=== PATIENT | male | born 1975 | race Caucasian/White ===

== ENCOUNTER → 2022-05-15 12:24 | Outpatient (BNVA) | payer OTHER, SELFPAY | PROVIDERS: PCP Nurse Practitioner; Visit Provider Internal Medicine Cardiovascular Disease | DX: R07.9 Chest pain, unspecified (principal); G47.30 Sleep apnea, unspecified; G43.909 Migraine, unspecified, not intractable, without status migrainosus; Z87.891 Personal history of nicotine dependence | CPT/HCPCS: 99203 ==

== ENCOUNTER 2023-11-03 03:10 | Emergency (ER) | payer OTHER, SELFPAY ==
[2023-11-03 03:15] VITALS: BP 164/93; PULSE 49; RESP 16; TEMP 37.1; O2SAT 99; BMI 30.8
--- NOTE | 2023-11-03 03:29 | CTR_ITS ---
PROCEDURE INFORMATION: Exam: CT Abdomen And Pelvis With Contrast Exam date and time: 11/03/2023 3:42 AM Age: 48 years old Clinical indication: Abdominal pain; Patient HX: Onset of epigastric pain this a. M. TECHNIQUE: Imaging protocol: Computed tomography of the abdomen and pelvis with contrast. Radiation optimization: All CT scans at this facility use at least one of these dose optimization techniques: automated exposure control; mA and/or kV adjustment per patient size (includes targeted exams where dose is matched to clinical indication); or iterative reconstruction. Contrast material: OMNI 350; Contrast volume: 100 ml; Contrast route: INTRAVENOUS (IV); COMPARISON: No relevant prior studies available. RADIATION DOSE METRICS: Total DLP (mGy-cm): 1082.73 FINDINGS: Lungs: Visualized lung bases are clear. Heart: Heart size normal Diaphragm: Possible small hiatal hernia. Mild distal esophageal wall thickening; DX for this appearance includes inflammatory/infectious/neoplastic etiologies. Liver: Mild hepatomegaly. No focal liver lesion seen. Gallbladder and bile ducts: Gallbladder is mildly distended. No CT findings to suggest cholecystitis. Pancreas: Normal. No ductal dilation. Spleen: Normal. No splenomegaly. Adrenal glands: Normal. No mass. Kidneys and ureters: Normal. No hydronephrosis. Stomach and bowel: Prominent rectosigmoid wall thickening; DX for this appearance includes inflammatory/infectious/neoplastic etiologies. Copious stool fills the right colon. Appendix: Appendix is not definitely visualized. No secondary signs to suggest appendicitis. No pericecal inflammation or free fluid. Intraperitoneal space: See Lymph nodes finding. Vasculature: Unremarkable. No abdominal aortic aneurysm. Lymph nodes: Multiple shotty mediastinal nodes are seen within the left abdomen, largest measuring up to 8 mm short axis as seen on series 3/36 and series 3/. Subtle surrounding deric mesentery sign. Constellation of findings suggests mesenteric panniculitis. Other etiologies can not be excluded. Shotty periaortic nodes. Subcentimeter mesenteric nodes are also seen throughout the right abdomen. Urinary bladder: Unremarkable as visualized. Reproductive: Unremarkable as visualized. Bones/joints: No suspicious osseous findings. Soft tissues: Unremarkable. CT/CT abdomen pelvis w con* [id number] IMPRESSION: 1. Constellation of findings at the left abdomen compatible with mesenteric panniculitis. 2. Rectosigmoid wall thickening as discussed . 3. Appendix is not definitely visualized. No secondary signs to suggest appendicitis. 4. Other chronic/incidental findings as above.
--- NOTE | 2023-11-03 03:29 | ECG_ITS ---
[facility] Test Date: 2023-11-03 Pat Name: Jeffy Fernandez Department: Room: Gender: Male Purchasing Coordinator: : 1975 Requested By: Theodore Fisher Order Number: [id number] Myriam MD: Prudencio De Jesus M.D. Measurements Intervals [place] Rate: 51 P: 35 NM: 138 QRS: 17 QRSD: 121 T: 37 QT: 453 QTc: 418 Interpretive Statements SINUS BRADYCARDIA POSSIBLE LATERAL MYOCARDIAL INFARCTION , OF INDETERMINATE AGE [30 ms Q WAVE IN I/aVL/V5/V6] No previous ECG available for comparison Electronically Signed On 11-03-2023 8:21:56 STATION WORKER by Prudencio De Jesus M.D. [email or web address]
[2023-11-03 03:31] LABS: Basophils # 0.1 10^3/uL (0.0-0.1); Basophils % 0.7 %; Eosinophils # 0.2 10^3/uL (0.0-0.8); Hematocrit 38.5 % (37-53); Lymphocytes # 1.8 10^3/uL (0.8-4.8); Lymphocytes % 22.4 %; Mean Corpuscular HGB Conc 35.3 g/dL (30-55); Mean Corpuscular Hemoglobin 30.7 pg (27-33); Mean Corpuscular Volume 86.9 fl (82-101); Monocytes # 0.5 10^3/uL (0.2-0.9); Neutrophils # 5.55 10^3/uL (1.8-7.7); Neutrophils % 68.4 %; Nucleated Red Blood Cells % 0 %; Platelet Count 265 10^3/cmm (157-399); Red Blood Count 4.43 10^6/uL (3.85-5.65); Red Cell Distribution Width 12.3 % (12.1-15.1); White Blood Count 8.12 10^3/uL (3.29-11.43)
[2023-11-03] MEDS: lidocaine 2% viscous 15 ML, aluminum-mag hydrox-simethicon 30 ML, sucralfate oral liq 1 GM PO (03:40)
[2023-11-03] MEDS: ondansetron 2 mg/ML SDV 2 mL 4 MG IVP (03:40)
[2023-11-03] MEDS: morphine 4 mg/mL SDV 1 mL IVP (03:40)
[2023-11-03] MEDS: iohexol 350 mg/mL 500 mL Btl (per mL) IV (03:44)
[2023-11-03 03:48] LABS: Alanine Aminotransferase 37 U/L (0-41); Albumin Level 4.4 g/dL (3.5-5.2); Alkaline Phosphatase 66 U/L (40-130); Anion Gap 16.2 (5-19); Aspartate Amino Transferase 20 U/L (0-40); Blood Urea Nitrogen 23 mg/dL (6-20); Calcium 9.1 mg/dL (8.5-10.5); Carbon Dioxide 25 mmol/L (22-29); Chloride 97 mmol/L (98-107); Globulin 2.9 g/dL (1.3-4.6); Glomerular Filtration Rate 79.8 mL/min (90-130); Glucose 126 mg/dL (65-115); Lipase 45 U/L (13-60); Osmolality Calculated 283 mOsm/kg (285-295); Potassium 4.2 mmol/L (3.5-5.1); Sodium 134 mmol/L (136-145); Total Bilirubin 0.6 mg/dL (0.15-1.2); Total Protein 7.3 g/dL (6.6-8.7)
[2023-11-03 04:02] LABS: Troponin(5th) Baseline < 6 ng/L (0-15)
[2023-11-03] MEDS: ketorolac 30 mg/mL INJ IVP (04:27)
--- NOTE | 2023-11-03 04:55 | ED_ITS ---
HPI - Abdominal Pain 2 General: Chief Complaint: Abdominal Pain Stated Complaint: abd pain upper into back Time Seen by Provider: 11/03/23 03:14 History of Present Illness: 48-year-old male with a history of abdom inal pain starting last night. He has been nauseated. No vomiting. No diarrhea. No fever. He has not had pain like this before. No urinary symptoms. No blood in the stool. No history of abdominal surgery. Associated Symptoms: Reports nausea; Denies chills, diarrhea, fever(s), hematochezia and vomiting Review of Systems 2 Const: Denies: fever(s), chills or body aches Eyes: Denies: change in vision Card: Denies: chest pain or palpitations Resp: Denies: dyspnea, productive cough, non-productive cough or wheezing GI: Reports: abdominal pain and nausea; Denies: vomiting, diarrhea or hematochezia Skin/Breast: Denies: rash Neuro: Denies: headache(s), weakness in extremities, dizziness or confusion PFSH ED 2 PFSH: Medical History Cervicalgia Migraine History of traumatic brain injury PTSD (post-traumatic stress disorder) Sleep apnea Surgical History S/P carpal tunnel release S/P shoulder surgery S/P vasectomy S/P knee surgery Family History Grandfather Myocardial infarct Stroke Other Diabetes Hypertension Social History Smoking and tobacco/nicotine status: former use of tobacco/nicotine Physical Exam 2 Const: COMMON NORMALS: no acute distress GENERAL APPEARANCE: cooperative; not ill appearing and not frail appearing HENMT: COMMON NORMALS: normocephalic, atraumatic and Normal external nose present HEAD & SCALP: normocephalic and atraumatic FACE & SINUS: normal facial exam and face symmetric NOSE: Normal external nose present Eye: COMMON NORMALS: Equal, round and reactive pupils present and EOMs intact bilaterally PUPIL: Yes Equal, round and reactive pupils present Neck/C-Spine: GENERAL: Yes trachea midline Chest: CHEST: Yes Symmetrical chest wall rise Resp: COMMON NORMALS: normal respiratory effort, No retractions, No use of accessory muscles and clear to auscultation bilaterally AUSCULTATION: clear to auscultation bilaterally Cardio: COMMON NORMALS: regular rate and regular rhythm RATE: regular rate RHYTHM: regular rhythm GI: COMMON NORMALS: Normal to inspection, nondistended, normoactive bowel sounds present and Soft to palpation PALPATION: Yes Soft to palpation and Yes Tenderness to palpation present (GI) (Epigastric) Details: RUQ Extremity: COMMON NORMALS: no pedal edema Neuro: TJ COMA SCALE: document GCS findings Jt coma scale eye opening: Spontaneous [place] coma scale verbal response: Orientated [place] coma scale motor response: Obey commands Jt coma scale total score: 15 S ENSORY EXAM: Yes extremities (intact) Psych: COMMON NORMALS: speech normal SPEECH: Yes normal speech Skin: COMMON NORMALS: no rashes or lesions noted GENERAL SKIN EXAM: no rashes or lesions noted Course 2 Vital Signs: Vital signs: Vital Signs Temperature 98.8 F 11/03/23 03:15 Pulse Rate 74 11/03/23 06:46 Respiratory Rate 18 11/03/23 06:46 Blood Pressure 164/90 11/03/23 06:46 Pulse Oximetry 94 11/03/23 06:46 Oxygen Delivery Me thod Room Air 11/03/23 03:15 MDM - Abdominal Pain Medical Decision Making Vitals are stable. CBC is normal. CMP shows a BUN of 23 with a creatinine of 1. Liver enzymes are normal. Bilirubin is 0.6. Lipase is 45. CRP is 3. CT of the abdomen pelvis is pending. CT reveals findings consistent with mesenteric panniculitis. There are some rectosigmoid colon wall thickening. There is significant amount of stool present. Findings were gone over with the patient. He is placed on steroids. Pain medication. 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 To return for any worsening symptoms. He understands. Lab Data 11/03/23 03:17 11/03/23 03:17 Labs/Radiology: Radiology Impressions Abdomen/Pelvis CT 11/03/23 03:29 IMPRESSION: 1. Constellation of findings at the left abdomen compatible with mesenteric panniculitis. 2. Rectosigmoid wall thickening as discussed . 3. Appendix is not definitely visualized. No secondary signs to suggest appendicitis. 4. Other chronic/incidental findings as above. Laboratory Results WBC 8.12 10^3/uL (3.29-11.43) 11/03/23 03:17 RBC 4.43 10^6/uL (3.85-5.65) 11/03/23 03:17 Hgb 13.60 g/dL (11.27-16.99) 11/03/23 03:17 Hct 38.5 % (37-53) 11/03/23 03:17 MCV 86.9 fl (82-101) 11/03/23 03:17 MCH 30.7 pg (27-33) 11/03/23 03:17 MCHC 35.3 g/dL (30-55) 11/03/23 03:17 RDW 12.3 % (12.1-15.1) 11/03/23 03:17 Plt Count 265 10^3/cmm (157-399) 11/03/23 03:17 MPV 11.0 fL (7.4-10.4) H 11/03/23 03:17 Neut % (Auto) 68.4 % 11/03/23 03:17 Lymph % (Auto) 22.4 % 11/03/23 03:17 [place] % (Auto) 6.0 % 11/03/23 03:17 Eos % (Auto) 2.0 % 11/03/23 03:17 Baso % (Auto) 0.7 % 11/03/23 03:17 Neut # (Auto) 5.55 10^3/uL (1.8-7.7) 11/03/23 03:17 Lymph # (Auto) 1.8 10^3/uL (0.8-4.8) 11/03/23 03:17 [place] # (Auto) 0.5 10^3/uL (0.2-0.9) 11/03/23 03:17 Eos # (Auto) 0.2 10^3/uL (0.0-0.8) 11/03/23 03:17 Baso # (Auto) 0.1 10^3/uL (0.0-0.1) 11/03/23 03:17 Nucleated RBC % (auto) 0 % 11/03/23 03:17 Nucleated RBCs # 0.0 /100WBC 11/03/23 03:17 Sodium 134 mmol/L (136-145) L 11/03/23 03:17 Potassium 4.2 mmol/L (3.5-5.1) 11/03/23 03:17 Chloride 97 mmol/L (98-107) L 11/03/23 03:17 Carbon Dioxide 25 mmol/L (22-29) 11/03/23 03:17 Anion Gap 16.2 (5-19) 11/03/23 03:17 BUN 23 mg/dL (6-20) H 11/03/23 03:17 Creatinine 1.0 mg/dL (0.7-1.2) 11/03/23 03:17 GFR Calculation 79.8 mL/min (90-130) L 11/03/23 03:17 Glucose 126 mg/dL (65-115) H 11/03/23 03:17 Calculated Osmolality 283 mOsm/kg (285-295) L 11/03/23 03:17 Calcium 9.1 mg/dL (8.5-10.5) 11/03/23 03:17 Total Bilirubin 0.6 mg/dL (0.15-1.2) 11/03/23 03:17 AST 20 U/L (0-40) 11/03/23 03:17 ALT 37 U/L (0-41) 11/03/23 03:17 Alkaline Phosphatase 66 U/L (40-130) 11/03/23 03:17 Troponin T Baseline < 6 ng/L (0-15) 11/03/23 03:17 Troponin T 120 Minute 6.00 ng/L (0-15) 11/03/23 05:11 Delta Troponin T 0.84119 ABS# (0-10) 11/03/23 05:11 C-Reactive Protein 3.0 mg/L (0.0-4.9) 11/03/23 03:17 Total Protein 7.3 g/dL (6.6-8.7) 11/03/23 03:17 Albumin 4.4 g/dL (3.5-5.2) 11/03/23 03:17 Globulin 2.9 g/dL (1.3-4.6) 11/03/23 03:17 Lipase 45 U/L (13-60) 11/03/23 03:17 All radiology interpretation(s) finalized by discharge Discharge Plan Discharge Patient Disposition: Home Clinical Impression: Mesenteric panniculitis Condition: Stable Prescriptions: New Percocet 7.5-325 mg tablet 1 tab PO Q6H PRN (Reason: pain) Qty: 10 0RF ondansetron 4 mg tablet,disintegrating 4 mg PO Q6H PRN (Reason: nausea and vomiting) Qty: 14 0RF prednisone 20 mg tablet 20 mg PO TID Qty: 15 0RF No Action meloxicam 15 mg tablet 15 mg PO DAILY tramadol 50 mg tablet 50 mg PO BID PRN sumatriptan succinate [Imitrex] 25 mg tablet 25 mg PO Q2H PRN Rx Instructions: do not exceed 8 doses per 24 hrs Discharge Orders: Discharge ED (Routine); Ordered 11/03/23 Ordered By: Theodore Bridges Referrals: Arin South FNP [Primary Care Provider] - 1-3 days Patient Instructions: Opioid Safety, Pain Management Activity Restrictions/Additional Instructions: You have a condition called mesenteric panniculitis. It is treated with steroids, and symptom management. Please see the attached information from the [facility]. Return for worsening pain despite treatment, vomiting liquids or medications, fever greater than 100, any other concerning symptoms. Medications as directed. See your doctor later this week. Coding Level of Care Code ED Manager Packaging for Young Resendez
[2023-11-03] MEDS: HYDROmorphone 1 mg/mL INJ 1 mL IVP (04:59)
[2023-11-03 05:32] LABS: Troponin 5 2HR Delta 0.00001 ABS# (0-10)
[2023-11-03] MEDS: methylPREDNISolone sod succ 125 mg/2 mL INJ IVP (06:09)
[2023-11-03] MEDS: HYDROmorphone 1 mg/mL INJ 1 mL 0.5 MG IVP (06:09)
--- NOTE | 2023-11-03 06:44 | PC.NURSE ---
Pt. discharged home with e-scripts that went to [facility] pharmacy. Pt. was given printed scripts. Day shift nurse reported to call and cancel scripts at [facility].
[2023-11-03 06:46] VITALS: BP 164/90; PULSE 74; RESP 18; O2SAT 94
== END 2023-11-03 06:48 | disposition home or self-care (01) ==
PROVIDERS: Emergency Provider Emergency Medicine; PCP Nurse Practitioner
DX: K65.4 Sclerosing mesenteritis (principal); Z87.891 Personal history of nicotine dependence
CPT/HCPCS: 36415; 74177; 80053; 83690; 84484; 85025; 86140; 93005; 96374; 96375; 96376; 99285; J1170; J1885; J2270; J2405; J2930; Q9967

== ENCOUNTER 2023-12-02 09:14 | Outpatient (CLI) | payer OTHER, SELFPAY ==
--- NOTE | 2023-12-02 09:24 | US_ITS ---
WS: [id number] ULTRASOUND THYROID TECHNIQUE: Ultrasound of the thyroid. CLINICAL INFORMATION: HYPOTHYROIDISM/ELEVATED PEPPER COMPARISON: None. FINDINGS: Thyroid: Heterogeneous enlarged thyroid. Coarse heterogeneous thyroid echotexture with small micronod ules and markedly increased vascularity. This can be seen with Yaokv's thyroiditis. Recommend cor relation with thyroid function studies. Right thyroid lobe: 4.5 cm x 1.4 cm x 1.5 cm Left thyroid lobe: 4.3 cm x 1.6 cm x 1.6 cm. Isthmus: 0.5 mm. Cervical lymphadenopathy: None. IMPRESSION: 1. Heterogeneous thyroid echotexture with mild thyroid enlargement. Markedly increased thyroid vascu larity. Findings can be seen with Yakov's thyroiditis. Recommend correlation with thyroid functio n studies. 2. No dominant nodules
== END 2023-12-02 09:15 | disposition home or self-care (01) ==
LOC: RAD 09:14
PROVIDERS: PCP Nurse Practitioner; Visit Provider Nurse Practitioner
DX: E03.9 Hypothyroidism, unspecified (principal); E04.9 Nontoxic goiter, unspecified
CPT/HCPCS: 76536

== ENCOUNTER → 2024-02-03 07:58 | Outpatient (BNVA) | payer OTHER, SELFPAY | PROVIDERS: PCP Nurse Practitioner; Referring Provider Nurse Practitioner; Visit Provider Internal Medicine | DX: E06.3 Autoimmune thyroiditis (principal); E01.0 Iodine-deficiency related diffuse (endemic) goiter | CPT/HCPCS: 99204 ==

== ENCOUNTER 2024-04-12 03:16 | Emergency (ER) | payer OTHER, SELFPAY ==
[2024-04-12 03:21] VITALS: BP 171/106; PULSE 53; RESP 18; TEMP 36.4; O2SAT 99; BMI 34.0
--- NOTE | 2024-04-12 03:32 | ED_ITS ---
HPI - Abdominal Pain 2 General: Chief Complaint: Abdominal Pain Stated Complaint: severe ABD pain Time Seen by Provider: 04/12/24 03:20 History of Present Illness: Patient presents to the ER with complaints of bandlike pain and upper abdominal pain that started about 9 PM tonight he rates it severe in nature. Patient states it feels exactly like the last time he was in when he got diagnosed with mesenteric panniculitis after he took the medicine he has been good up until now. Patient denies any vomiting diarrhea only some mild nausea. Patient has not taken any medicine for at this time other than 1 standard Tylenol approximately 2 hours ago. Patient denies any history of abdominal surgeries. Review of Systems 2 General: Reports: 10 or more systems reviewed and unremarkable except in HPI and below PFSH ED 2 PFSH: Medical History Cervicalgia Migraine History of traumatic brain injury PTSD (post-traumatic stress disorder) Sleep apnea Surgical History S/P carpal tunnel release S/P shoulder surgery S/P vasectomy S/P knee surgery Family History Grandfather Myocardial infarct Stroke Other Diabetes Hypertension Social History Smoking and tobacco/nicotine status: former use of tobacco/nicotine Physical Exam 2 Const: COMMON NORMALS: no acute distress, average body habitus, patient oriented x3, no limitations, healthy appearing, alert and well nourished HENMT: COMMON NORMALS: normocephalic, atraumatic, hearing grossly normal bilaterally, external ears normal, Normal external nose present and moist oral mucous membranes HEAD & SCALP: normocephalic and atraumatic NOSE: Normal external nose present EXTERNAL EAR: Yes external ears normal Neck/C-Spine: COMMON NORMALS: no JVD Chest: COMMONS NORMALS: normal inspection of the chest and normal palpation of entire chest wall Resp: COMMON NORMALS: normal respiratory effort, No retractions, No use of accessory muscles and clear to auscultation bilaterally AUSCULTATION: clear to auscultation bilaterally Cardio: COMMON NORMALS: no JVD, regular rate, regular rhythm, S1 normal heart sound present, S2 normal heart sound present, No gallops present (Cardio), No clicks present (Cardio), No murmurs present (Cardio) and No rub (Cardio) R ATE: regular rate RHYTHM: regular rhythm HEART SOUNDS: S1 normal heart sound present and S2 normal heart sound present GI: COMMON NORMALS: Normal to inspection, nondistended, normoactive bowel sounds present, Soft to palpation, No hepatosplenomegaly present and no masses; negative for non-tender (Tender with palpation across upper abdomen,) P ALPATION: Yes Soft to palpation and Yes No hepatosplenomegaly present Neuro: COMMON NORMALS: patient oriented x3 SENSORIUM/ORIENTATION: Yes alert Course 2 Vital Signs: Vital signs: Vital Signs Temperature 97.6 F 04/12/24 03:21 Pulse Rate 47 L 04/12/24 03:34 Respiratory Rate 14 04/12/24 03:51 Blood Pressure 171/106 04/12/24 03:21 Pulse Oximetry 95 04/12/24 03:51 Oxygen Delivery Me thod Room Air 04/12/24 03:34 MDM - Abdominal Pain Medical Decision Making Patient came in for physical evaluation, head physical exam, CBC CMP lipase CRP performed all which was essentially benign. Patient states he feels like exactly the same as when he had mesenteric panniculitis. Patient be discharged on the same medicines. Patient to follow-up with his PCP. Differential Diagnosis Likely abdominal pain Medical Records I reviewed the patient's medical records. Lab Data I reviewed the patient's lab results. 04/12/24 03:32 04/12/24 03:32 Labs/Radiology: Laboratory Results WBC 6.46 10^3/uL (3.29-11.43) 04/12/24 03:32 RBC 4.60 10^6/uL (3.85-5.65) 04/12/24 03:32 Hgb 14.10 g/dL (11.27-16.99) 04/12/24 03:32 Hct 40.2 % (37-53) 04/12/24 03:32 MCV 87.4 fl (82-101) 04/12/24 03:32 MCH 30.7 pg (27-33) 04/12/24 03:32 MCHC 35.1 g/dL (30-55) 04/12/24 03:32 RDW 12.4 % (12.1-15.1) 04/12/24 03:32 Plt Count 212 10^3/cmm (157-399) 04/12/24 03:32 MPV 10.6 fL (7.4-10.4) H 04/12/24 03:32 Neut % (Auto) 57.1 % 04/12/24 03:32 Lymph % (Auto) 28.6 % 04/12/24 03:32 [place] % (Auto) 8.4 % 04/12/24 03:32 Eos % (Auto) 4.8 % 04/12/24 03:32 Baso % (Auto) 0.8 % 04/12/24 03:32 Neut # (Auto) 3.69 10^3/uL (1.8-7.7) 04/12/24 03:32 Lymph # (Auto) 1.9 10^3/uL (0.8-4.8) 04/12/24 03:32 [place] # (Auto) 0.5 10^3/uL (0.2-0.9) 04/12/24 03:32 Eos # (Auto) 0.3 10^3/uL (0.0-0.8) 04/12/24 03:32 Baso # (Auto) 0.1 10^3/uL (0.0-0.1) 04/12/24 03:32 Nucleated RBC % (auto) 0 % 04/12/24 03:32 Nucleated RBCs # 0.0 /100WBC 04/12/24 03:32 Sodium 138 mmol/L (136-145) 04/12/24 03:32 Potassium 3.7 mmol/L (3.5-5.1) 04/12/24 03:32 Chloride 104 mmol/L (98-107) 04/12/24 03:32 Carbon Dioxide 22 mmol/L (22-29) 04/12/24 03:32 Anion Gap 15.7 (5-19) 04/12/24 03:32 BUN 19 mg/dL (6-20) 04/12/24 03:32 Creatinine 1.0 mg/dL (0.7-1.2) 04/12/24 03:32 GFR Calculation 79.4 mL/min (90-130) L 04/12/24 03:32 Glucose 127 mg/dL (65-115) H 04/12/24 03:32 Calculated Osmolality 290 mOsm/kg (285-295) 04/12/24 03:32 Calcium 8.9 mg/dL (8.5-10.5) 04/12/24 03:32 Total Bilirubin 0.5 mg/dL (0.15-1.2) 04/12/24 03:32 AST 23 U/L (0-40) 04/12/24 03:32 ALT 42 U/L (0-41) H 04/12/24 03:32 Alkaline Phosphatase 76 U/L (40-130) 04/12/24 03:32 C-Reactive Protein 3.0 mg/L (0.0-4.9) 04/12/24 03:32 Total Protein 6.8 g/dL (6.6-8.7) 04/12/24 03:32 Albumin 4.2 g/dL (3.5-5.2) 04/12/24 03:32 Globulin 2.6 g/dL (1.3-4.6) 04/12/24 03:32 Lipase 44 U/L (13-60) 04/12/24 03:32 All radiology interpretation(s) finalized by discharge Discharge Plan Discharge Patient Disposition: Home Clinical Impression: Mesenteric panniculitis Condition: Stable Prescriptions: New Percocet 7.5-325 mg tablet 1 tab PO Q6H PRN (Reason: pain) Qty: 10 0RF ondansetron 4 mg tablet,disintegrating 4 mg PO Q6H PRN (Reason: nausea and vomiting) Qty: 14 0RF prednisone 20 mg tablet 20 mg PO TID Qty: 14 0RF No Action lisinopril 10 mg tablet 10 mg PO DAILY meloxicam 15 mg tablet 15 mg PO DAILY tramadol 50 mg tablet 50 mg PO BID PRN sumatriptan succinate [Imitrex] 25 mg tablet 25 mg PO Q2H PRN Rx Instructions: do not exceed 8 doses per 24 hrs Percocet 7.5-325 mg tablet 1 tab PO Q6H PRN (Reason: pain) Qty: 10 0RF ondansetron 4 mg tablet,disintegrating 4 mg PO Q6H PRN (Reason: nausea and vomiting) Qty: 14 0RF prednisone 20 mg tablet 20 mg PO TID Qty: 15 0RF Discharge Orders: Discharge ED (Routine); Ordered 04/12/24 Ordered By: Sean Pool Referrals: Arin South FNP [Primary Care Provider] - 1 week Patient Instructions: Opioid Safety, Pain Management, Abdominal Pain - Adult Activity Restrictions/Additional Instructions: Thank you for choosing [facility] for your healthcare needs today. Please realize that you were seen in the emergency department and that we are providing you with an emergency medical screening exam and this may not be a complete and all exclusive of all testing and/or medical workup we may need to determine your element or severity of your illness. It is very important that you follow-up as instructed with your primary care provider or specialist for the additional evaluation and to discuss your medical treatment plan. You may return to the emergency department should you have concerns or if your condition changes or worsens in any way. Coding Level of Care Code ED Manager Corporate for Young Resendez
[2024-04-12 03:34] VITALS: PULSE 47; RESP 10; O2SAT 97
[2024-04-12 03:39] LABS: Basophils # 0.1 10^3/uL (0.0-0.1); Basophils % 0.8 %; Eosinophils # 0.3 10^3/uL (0.0-0.8); Eosinophils % 4.8 %; Hematocrit 40.2 % (37-53); Lymphocytes # 1.9 10^3/uL (0.8-4.8); Lymphocytes % 28.6 %; Mean Corpuscular HGB Conc 35.1 g/dL (30-55); Mean Corpuscular Hemoglobin 30.7 pg (27-33); Mean Corpuscular Volume 87.4 fl (82-101); Mean Platelet Volume 10.6 fL (7.4-10.4); Monocytes # 0.5 10^3/uL (0.2-0.9); Monocytes % 8.4 %; Neutrophils # 3.69 10^3/uL (1.8-7.7); Neutrophils % 57.1 %; Nucleated Red Blood Cells % 0 %; Platelet Count 212 10^3/cmm (157-399); Red Cell Distribution Width 12.4 % (12.1-15.1); White Blood Count 6.46 10^3/uL (3.29-11.43)
[2024-04-12] MEDS: ondansetron 2 mg/ML SDV 2 mL 4 MG IVP (03:49)
[2024-04-12 03:51] VITALS: RESP 14; O2SAT 95
[2024-04-12] MEDS: HYDROmorphone 1 mg/mL INJ 1 mL IVP (03:51)
[2024-04-12] MEDS: methylPREDNISolone sod succ 125 mg/2 mL INJ IVP (03:53)
[2024-04-12 04:00] LABS: Alanine Aminotransferase 42 U/L (0-41); Albumin Level 4.2 g/dL (3.5-5.2); Alkaline Phosphatase 76 U/L (40-130); Anion Gap 15.7 (5-19); Aspartate Amino Transferase 23 U/L (0-40); Blood Urea Nitrogen 19 mg/dL (6-20); Calcium 8.9 mg/dL (8.5-10.5); Carbon Dioxide 22 mmol/L (22-29); Chloride 104 mmol/L (98-107); Creatinine Clr Calc Pharmacy 130.0319; Globulin 2.6 g/dL (1.3-4.6); Glomerular Filtration Rate 79.4 mL/min (90-130); Glucose 127 mg/dL (65-115); Lipase 44 U/L (13-60); Osmolality Calculated 290 mOsm/kg (285-295); Potassium 3.7 mmol/L (3.5-5.1); Sodium 138 mmol/L (136-145); Total Bilirubin 0.5 mg/dL (0.15-1.2); Total Protein 6.8 g/dL (6.6-8.7)
[2024-04-12 04:39] VITALS: BP 143/94; PULSE 53; RESP 16; O2SAT 96
--- NOTE | 2024-04-12 04:39 | PC.NURSE ---
Pt sent home with Seym[facility] per Dr Pool's order.
== END 2024-04-12 04:40 | disposition home or self-care (01) ==
PROVIDERS: Emergency Provider Emergency Medicine; PCP Nurse Practitioner
DX: K65.4 Sclerosing mesenteritis (principal); Z87.891 Personal history of nicotine dependence
CPT/HCPCS: 80053; 83690; 85025; 86140; 96374; 96375; 99284; J1170; J2405; J2919

== ENCOUNTER → 2024-06-09 07:55 | Outpatient (BNVA) | payer OTHER, SELFPAY | PROVIDERS: PCP Nurse Practitioner; Visit Provider Nurse Practitioner Family | DX: L82.1 Other seborrheic keratosis (principal); D22.72 Melanocytic nevi of left lower limb, including hip; L91.8 Other hypertrophic disorders of the skin; Z78.9 Other specified health status; L29.8 Other pruritus | CPT/HCPCS: 17110; 99203 ==

== ENCOUNTER 2024-07-03 10:14 | Outpatient (CLI) | payer OTHER, SELFPAY ==
[2024-07-03 10:54] LABS: Free T4 Free Thyroxine 1.09 ng/dL (0.82-1.77); Thyroid Stimulating Hormone 2.84 uIU/mL (0.27-4.20)
== END 2024-07-03 10:15 | disposition home or self-care (01) ==
LOC: LAB 10:15
PROVIDERS: PCP Nurse Practitioner; Visit Provider Internal Medicine
DX: E06.3 Autoimmune thyroiditis (principal); E01.0 Iodine-deficiency related diffuse (endemic) goiter
CPT/HCPCS: 36415; 84439; 84443

== ENCOUNTER → 2024-07-06 08:42 | Outpatient (BNVA) | payer OTHER, SELFPAY | PROVIDERS: PCP Nurse Practitioner; Visit Provider Internal Medicine | DX: M35.00 Sjogren syndrome, unspecified (principal); E06.3 Autoimmune thyroiditis; E01.0 Iodine-deficiency related diffuse (endemic) goiter; K65.4 Sclerosing mesenteritis | CPT/HCPCS: 99214 ==

== ENCOUNTER → 2024-07-14 10:24 | Outpatient (BNVA) | payer OTHER, SELFPAY | PROVIDERS: PCP Nurse Practitioner; Referring Provider Nurse Practitioner; Visit Provider Specialist | DX: R20.0 Anesthesia of skin (principal); R20.2 Paresthesia of skin; R29.898 Other symptoms and signs involving the musculoskeletal system | CPT/HCPCS: 95910; 95911 ==

== ENCOUNTER → 2024-12-21 08:46 | Outpatient (BNVA) | payer OTHER, SELFPAY | PROVIDERS: PCP Nurse Practitioner; Visit Provider Internal Medicine Rheumatology | DX: I10 Essential (primary) hypertension (principal); M25.50 Pain in unspecified joint; Z71.85 Encounter for immunization safety counseling; E06.3 Autoimmune thyroiditis; Z79.899 Other long term (current) drug therapy; M06.00 Rheumatoid arthritis without rheumatoid factor, unspecified site | CPT/HCPCS: 80076; 82565; 83520; 85025; 85651; 86140; 86160; 86162; 86200; 86235; 86255; 86376; 86431; 86480; 86704; 86803; 87340; 99214 ==

== ENCOUNTER → 2025-06-01 07:52 | Outpatient (BNVA) | payer OTHER, SELFPAY | PROVIDERS: PCP Nurse Practitioner; Referring Provider Nurse Practitioner; Visit Provider Anesthesiology Pain Medicine | DX: M54.9 Dorsalgia, unspecified (principal); M51.16 Intervertebral disc disorders with radiculopathy, lumbar region | CPT/HCPCS: 72110; 99204 ==

== ENCOUNTER 2025-06-17 07:01 | Outpatient (CLI) | payer OTHER, SELFPAY ==
--- NOTE | 2025-06-17 07:15 | MR_ITS ---
WS: [id number] MRI LUMBAR SPINE WITH AND WITHOUT CONTRAST HISTORY: M51.16 - Intervertebral disc disorders with radiculopathy... COMPARISON: Radiograph 06/01/2025 TECHNIQUE: Sagittal and axial multisequence imaging is submitted. Sagittal and axial T1 fat sat sequences post-MultiHance 20 cc IV. 3 mm retrolisthesis of L3. No acute fractures. Focal marrow edema along the adjacent RIGHT lateral endplates of L4 and L5. Small concave defect involving the RIGHT lateral endplates of L4 and L5 suspicious for Schmorl's nodes. There is a small amount of increased T2 signal within the adjacent L4-5 disc. Very minimal loss of height along the RIGHT lateral L5 vertebral body associated with the marrow edema. Mild disc space narrowing and desiccation at L3-4. Conus terminates normally at L1-2 disc level. L1-L2: Normal. L2-L3: Mild facet arthritis. No stenosis. L3-L4: Slight retrolisthesis of L3 with mild osteophytic ridging and disc bulging. Mild ligamentum flavum and facet arthritis. Very minimal foraminal narrowing. L4-L5: Mild annular disc bulging with mild osteophytic ridging and annular disc bulging. Mild narrowing of the RIGHT subarticular recess with mild encroachment upon the traversing RIGHT L5 nerve root. Moderate bilateral facet arthritis. L5-S1: Mild annular disc bulging with mild facet disease. Mild bilateral foraminal stenosis, LEFT greater than RIGHT. Mild enhancement within the RIGHT lateral L4-5 disc. Enhancement is associated with the marrow edema and loss of the normal cortical surfaces of the vertebral bodies. There is additional enhancement surrounding the facet joints, greatest on the RIGHT at the L4-5 level. No osteomyelitis or epidural abscess. MR/MR lumbar spine wo/w con [id number] IMPRESSION: 1. Focal marrow edema with Schmorl's nodes defects in the RIGHT lateral L4 and L5 vertebral bodies. There is enhancement within the disc in the endplates on the postcontrast exam. Favor that this is probably an acute Schmorl's node santos iation into the L4 and L5 endplates. 2. No epidural abscess or enhancing mass. 3. Additional acute synovitis with enhancement surrounding the L4-5 facet join ts, greater on the RIGHT. 4. Mild narrowing of the RIGHT subarticular recess with encroachment upon the traversing RIGHT L5 nerve root at L4-5. 5. Mild bilateral foraminal stenosis at L5-S1, greater on the LEFT.
[2025-06-17] MEDS: gadobenate dimeglumine 20 mL vial IV (07:58)
== END 2025-06-17 07:02 | disposition home or self-care (01) ==
LOC: RAD 07:02
PROVIDERS: PCP Nurse Practitioner; Visit Provider Anesthesiology Pain Medicine
DX: M51.16 Intervertebral disc disorders with radiculopathy, lumbar region (principal)
CPT/HCPCS: 72158

== ENCOUNTER → 2025-06-21 07:59 | Outpatient (BNVA) | payer OTHER, SELFPAY | PROVIDERS: PCP Nurse Practitioner; Visit Provider Anesthesiology Pain Medicine | DX: M54.9 Dorsalgia, unspecified (principal); M51.16 Intervertebral disc disorders with radiculopathy, lumbar region | CPT/HCPCS: 99214 ==

== ENCOUNTER → 2025-06-23 12:40 | Outpatient (BNVA) | payer OTHER, SELFPAY | PROVIDERS: PCP Nurse Practitioner; Visit Provider Anesthesiology Pain Medicine | DX: M54.16 Radiculopathy, lumbar region (principal) | CPT/HCPCS: 64483; 64484; J1100; J3490; J9999 ==

== ENCOUNTER → 2025-07-19 13:34 | Outpatient (BNVA) | payer OTHER, SELFPAY | PROVIDERS: PCP Nurse Practitioner; Visit Provider Anesthesiology Pain Medicine | DX: M51.16 Intervertebral disc disorders with radiculopathy, lumbar region (principal) | CPT/HCPCS: 99214 ==

== ENCOUNTER 2025-09-12 11:28 | Emergency (ER) | payer OTHER, SELFPAY ==
--- OUTSIDE RECORDS SUMMARY | 2025-09-12 11:36 | XMS_ITS | Patient Health Record ---
Author Organization [facility] Address [address] [place] [address] Care Team Providers Care Occupational Therapy Teacher Name Role Phone [facility] Provid [facility] Unavailable Ruperto Holland Unavailable [phone] [place], [place] Unavailable Unavailable Allergies No Known Allergies Reason For Referral No Information Medications Medication SIG (Take, Route, Fr equency, Duration) Notes Start Date End Date Status CeleBREX 100 MG Capsule 1 capsule with f ood Orally Once a day Active Sumatriptan 100mg tab 1 tablet oral as n eeded for migraine headaches Active Social History Tobacco Use: Social History Observation Description Date Details (start date - stop date) Former Smoker NA - NA Social History Drugs/Alcohol: Social Info Question Answer Notes Alcohol Screen (Audit-C) Did you have a drink containing alcohol in the past year? Yes How often did you have a drink containing alcohol in the past year? Monthly or less (1 point) How many drinks did you have on a typical day when you were drinking in the past year? 1 or 2 drinks (0 point) Points 1 Interpretation Negative Caffeine Intake: 1-2 cups per day Coffee, Sod a and Tea sometimes Tobacco Use: Social Info Question Answer Notes xTobacco Use/Smoking Are you a former smoker How long has it been since you last smoked? > 10 years Additional Details Category Social Info Options Details Drugs/Alcohol: Do you smoke marijuana? De nies Plan Of Treatment No Information Insurance Providers Payer Name Payer Address Payer Phone Subscriber Number Group Number Insured Name Patient Relationship to Insured Coverage Start Date Coverage End Date [employer] [address] [place] [phone] [id number] Jeffy Liao Self - patient is the insured Medical (General) History Medical History History ICD Code Arthritis Migraines Sleep apnea Surgical History Surgery Date(Month/Year) Left shoulder arthroscopy Vastectomy Carpal tunnel release, right hand
--- OUTSIDE RECORDS SUMMARY | 2025-09-12 11:36 | XMS_ITS | Clinical Summary ---
Author Organization [facility] Address [address] [place] [address] Phone Care Team Providers Care Instrumentation And Control Technician Name Role Phone Unavailable Primary Care Provider Unavailabl e Medications celecoxib (CeleBREX) 200 mg capsule Take 200 mg by mouth 2 times daily. 05/06/2024 Active lisinopriL (PRINIVIL) 40 mg tablet Take 40 mg by mouth daily. 05/06/2024 Active Active Problems No known active problems Social History Tobacco Use Types Packs/Day Years Used Date Smoking Tobacco: Never Smokeless Tobacco: Former Alcohol Use Standard Drinks/Week Comments Not Currently 0 (1 standard drink = 0.6 oz pur e alcohol) Sex and Gender Information Value Date Recorded Sex Assigned at Not on file Legal Sex Male 7:28 AM CDT Gender Identity Not on file Sexual Orientation Not on file Last Filed Vital Signs Vital Sign Reading Time Taken Comments Blood Pressure 120/70 07/24/2024 9:45 AM CDT Pulse - - Temperature - - Respiratory Rate - - Oxygen Saturation - - Inhaled Oxygen Concentration - - Weight 132.7 kg (292 lb 9.6 oz) 07/24/2024 9:45 AM CDT Height 193 cm (6' 4 ) 07/24/2024 9:45 AM CDT Body Mass Index 35.62 07/24/2024 9:45 AM CDT Plan of Treatment Health Maintenance Due Date Last Done Comments HEPATITIS B VACCINES (1 of 3 - 19+ 3-dose series) 1994 03/31/2008, 09/05/2007, 05/05/2007 COLORECTAL SCREENING 2020 Colorectal Cancer Screening 2020 FIT-DNA Q 3 years 2020 FIT/FOBT Q 1 year 2020 Flex Sig/CT Colonography Q 5 years 2020 ZOSTER VACCINE (1 of 2) 2025 INFLUENZA VACCINE (#1) 2025 6, 07/28/2014, 06/18/2013, Additional history exists DTAP/TDAP/TD VACCINES (3 - T d or Tdap) 05/17/2030 05/17/2020, 04/15/2012 Insurance * Guarantor: [employer] Account Type Relation to Patient Date of Phone Billing Address Corporate Employer DEFAULT ADDRESS [address] [employer]
--- NOTE | 2025-09-12 11:38 | XRR_ITS ---
PROCEDURE INFORMATION: Exam: XR Left Hand Exam date and time: 09/12/2025 11:38 AM Age: 50 years old Clinical indication: Injury or trauma; Laceration; Hand; Left; Additional info: Lacerations to lt 4th and 5th digits; Man vs saw TECHNIQUE: Imaging protocol: Radiologic exam of the left hand. Views: 3 or more views. COMPARISON: No relevant prior studies available. FINDINGS: Bones/joints: A small portion of the medial head of the 5th distal phalanx tuft is absent (traumatically) in addition to overlying soft tissue wound which overlying medial aspect of the 5th distal phalanx and DIP joint. Also noted is a small wound medial to the 4th intermediate phalanx distal metaphysis, without distinct underlying osseous abnormality. Otherwise, no acute fracture or malalignment. No worrisome lytic or blastic osseous lesion. No cortical erosion or periosteal reaction. Mild scattered degenerative changes. Soft tissues: See Bones/joints finding. XR/XR hand LT min 3V* [id number] IMPRESSION: A small portion of the medial head of the 5th distal phalanx tuft is absent (traumatically) in addition to overlying soft tissue wound which overlying medial aspect of the 5th distal phalanx and DIP joint. Also noted is a small wound medial to the 4th intermediate phalanx distal metaphysis, without distinct underlying osseous abnormality.
[2025-09-12 11:41] VITALS: BP 119/69; PULSE 57; RESP 18; TEMP 36.4; O2SAT 98; BMI 34.0
--- NOTE | 2025-09-12 11:54 | W.ED.EXTPRO ---
HPI - Extremity Problem General: Chief complaint: Extremity Injury, Upper Stated complaint: iram saw to left hand Time Seen by Provider: 09/12/25 11:38 Source: patient Mode of arrival: ambulatory Limitations: no limitations History of Present Illness: 50-year-old male states that he was working with a skill saw and lacerated his left hand. Does have a laceration to the ring finger also he has a laceration to his left pinky finger that has a portion of skin tissue removed on the lateral portion. He rates his pain 8 out of 10 Related Data Home Medications ?Medication ?Instructions ?Recorded ?Confirmed sumatriptan succinate 25 mg tablet 25 mg PO Q2H PRN 05/15/22 07/19/25 (Imitrex) lisinopril 10 mg tablet 10 mg PO DAILY 02/03/24 07/19/25 celecoxib 200 mg capsule (Celebrex) 200 mg PO DAILY 07/06/24 07/19/25 Held on 12/22/24. Instructions: Doctor's Order Previous Rx's ?Medication ?Instructions ?Recorded leflunomide 20 mg tablet 20 mg PO DAILY #30 tabs 12/22/24 prednisone 20 mg tablet See Rx Instructions PO .COMPLEX 12/22/24 PRN joint pain flare #30 tabs amoxicillin 500 mg-potassium 1 tab PO BID #14 tabs 09/12/25 clavulanate 125 mg tablet (Augmentin) oxycodone-acetaminophen 10 mg-325 1 tab PO Q8H PRN pain #14 tabs 09/12/25 mg tablet (Percocet) Allergies Allergy/AdvReac Type Severity Reaction Status Date / Time No Known Allergies Allergy Verified 09/12/25 11:44 [facility] PFSH: Medical History (Updated 09/12/25 @ 12:54 by Anahi Whalen MD) Immunization counseling Polyarthralgia History of hypertension TBI (traumatic brain injury) Positive antinuclear antibody Joint pain High risk medication use Cervicalgia Migraine History of traumatic brain injury PTSD (post-traumatic stress disorder) Sleep apnea Surgical History S/P carpal tunnel release S/P shoulder surgery S/P vasectomy S/P knee surgery Family History Grandfather Myocardial infarct Stroke Other Diabetes Hypertension Social History Smoking and tobacco/nicotine status: unknown if used tobacco/nicotine Physical Exam Const: COMMON NORMALS: no acute distress, patient oriented x3 and healthy appearing HENMT: COMMON NORMALS: normocephalic and atraumatic HEAD & SCALP: normocephalic and atraumatic Neck/C-Spine: COMMON NORMALS: full ROM and supple Chest: COMMONS NORMALS: normal inspection of the chest Resp: COMMON NORMALS: normal respiratory effort Cardio: COMMON NORMALS: regular rate RATE: regular rate Extremity: COMMON NORMALS: full ROM NARRATIVE EXTREMITY EXAM: 4 cm laceration distal portion of left ring finger distal sensation movements intact no signs of tendon injury. Left ring finger has a shaved off portion of skin over the lateral portion going down to muscle layer no bone exposure roughly a 2 x 5 cm portion Neuro: COMMON NORMALS: patient oriented x3, moves all extremities and no focal motor deficits Psych: COMMON NORMALS: mental status grossly normal, Normal thought process present and cooperative THOUGHT PROCESS: Normal thought process present Skin: COMMON NORMALS: no rashes or lesions noted and no wounds GENERAL SKIN EXAM: no rashes or lesions noted Procedures Laceration Laceration 1: Site: hand Side (If applicable): left Size (cm): 4 Description: linear Depth: simple, single layer Local Anesthetic: bupivacaine 0.5% Amount of anesthesia used (mL): 10 Pre-repair: wound explored, irrigated extensively and deep structures intact Skin layer closed with: nylon Size (cm): 5-0 Number of sutures: 5 Technique: simple, interrupted Course Vital Signs: Vital signs: Vital Signs Temperature 97.6 F 09/12/25 11:41 Pulse Rate 55 L 09/12/25 12:12 Respiratory Rate 18 09/12/25 12:12 Blood Pressure 118/78 09/12/25 12:12 Pulse Oximetry 99 09/12/25 12:12 Oxygen Delivery Me thod Room Air 09/12/25 12:12 MDM - Extremity (Nontraumatic) Medical Decision Making Patient presents here with a laceration to his left ring finger did repair the laceration with sutures was irrigated thoroughly no sign of tendon or nerve involvement this had a injury to the left ring finger that shaved off portion of the finger and did consult with Dr. Duran orthopedics did show him an image he agreed with me that it is not able to be sutured does not have any bone exposure did give him Ancef here will place bacitracin along with dressing will place him on Percocets for pain along with Augmentin he is to follow-up with Dr. Duran on Saturday Lab Data Radiology Impressions Hand X-Ray 09/12/25 11:38 IMPRESSION: A small portion of the medial head of the 5th distal phalanx tuft is absent (traumatically) in addition to overlying soft tissue wound which overlying medial aspect of the 5th distal phalanx and DIP joint. Also noted is a small wound medial to the 4th intermediate phalanx distal metaphysis, without distinct underlying osseous abnormality. All radiology interpretation(s) finalized by discharge Discharge Plan Discharge Patient Disposition: Home Clinical Impression: Finger laceration Qualifiers: Encounter type: initial encounter Finger: ring finger Laterality: left Condition: Stable Prescriptions: New amoxicillin-pot clavulanate [Augmentin] 500-125 mg tablet 1 tab PO BID Qty: 14 0RF oxycodone-acetaminophen [Percocet] 10-325 mg tablet 1 tab PO Q8H PRN (Reason: pain) Qty: 14 0RF No Action lisinopril 10 mg tablet 10 mg PO DAILY celecoxib [Celebrex] 200 mg capsule 200 mg PO DAILY sodium chloride 0.9 % Solution 4 ml epidural ONCE Qty: 10 0RF bupivacaine (PF) 0.25 % (2.5 mg/mL) solution 2 ml Infiltration ONCE Qty: 1 0RF lidocaine (PF) 20 mg/mL (2 %) solution 60 mg intra-articular ROUTINE Qty: 20 0RF dexamethasone sodium phos (PF) 10 mg/mL solution 8 mg intra-articular ONCE Qty: 2 0RF sumatriptan succinate [Imitrex] 25 mg tablet 25 mg PO Q2H PRN Rx Instructions: do not exceed 8 doses per 24 hrs leflunomide 20 mg tablet 20 mg PO DAILY Qty: 30 5RF prednisone 20 mg tablet See Rx Instructions PO .COMPLEX PRN (Reason: joint pain flare) Qty: 30 1RF Rx Instructions: take 1 or 2 tab daily for up to 7 days as needed for arthritis flare PO PRN; Discharge Orders: Discharge ED (Routine); Ordered 09/12/25 Ordered By: Korby Koby Referrals: Arin South FNP [Primary Care Provider, Nurse Practitioner] Jl Duran DO [Physician, Orthopedics] - 4-7 days Discharge Diet: Advance as tolerated Discharge Activity: Resume usual activity Patient Instructions: Laceration (ED), Opioid Safety Print Language: Romansh Coding Level of Care Code ED Instructional Technology Teacher for [employer]
[2025-09-12] MEDS: ondansetron 2 mg/ML SDV 2 mL 4 MG IVP (12:02)
[2025-09-12 12:03] VITALS: RESP 18
[2025-09-12] MEDS: morphine 4 mg/mL SDV 1 mL IVP (12:03)
[2025-09-12] MEDS: BUPivacaine 0.5% INJ 10 mL INJECTION (12:04)
[2025-09-12] MEDS: tetanus-dipt-pertussis 0.5 mL SDV IM (12:05)
[2025-09-12] MEDS: ceFAZolin 2,000 mg SDV 2000 MG IVP (12:10)
[2025-09-12 12:12] VITALS: BP 118/78; PULSE 55; RESP 18; O2SAT 99
[2025-09-12] MEDS: HYDROmorphone 0.5 MG/0.5 ML INJ IVP (12:36)
[2025-09-12] MEDS: neomycin-poly-bacitracin oint 0.9 gm Pkt 1 APPLIC TOPICAL (12:37)
--- NOTE | 2025-09-12 13:21 | PC.NURSE ---
Wound irrigated and triple abx, vaseline gauze, telfa and wrapped per Dr Whalen.
[2025-09-12 13:23] VITALS: BP 101/68; PULSE 60; O2SAT 96
== END 2025-09-12 13:25 | disposition home or self-care (01) ==
PROVIDERS: Emergency Provider Emergency Medicine; PCP Nurse Practitioner
DX: S61.215A Laceration without foreign body of left ring finger without damage to nail, initial encounter (principal); W27.0XXA Contact with workbench tool, initial encounter
CPT/HCPCS: 12002; 73130; 90471; 90715; 96374; 96375; 99284; A6446; J0690; J1171; J2270; J2405; J3490; J9999

== ENCOUNTER → 2025-09-14 10:59 | Outpatient (BNVA) | payer OTHER, SELFPAY | PROVIDERS: PCP Nurse Practitioner; Visit Provider Student in an Organized Health Care Education/Training Program | DX: S61.216A Laceration without foreign body of right little finger without damage to nail, initial encounter (principal); S60.15 Contusion of little finger with damage to nail; S62.636A Displaced fracture of distal phalanx of right little finger, initial encounter for closed fracture; W27.0XXA Contact with workbench tool, initial encounter | CPT/HCPCS: 26750; 73130; 99204 ==